=== PATIENT | female | born 1960 | race Caucasian/White ===

== ENCOUNTER → 2017-11-13 | Outpatient (CLI) | payer MEDICARE ==
[~2017-11-13] MED LIST: CLON1 PO; DICY1TAB26 PO; LORTA5 PO; LURA120T PO; METO10TA PO; NYST500KS SWISH-SPIT; PHEN12.5 PR; PROM25TA5 PO; PROT40TA PO; PROZ40CA PO; SERO200T PO; SUCR1S PO; ZOFR8TAB PO
--- NOTE | 2017-11-14 07:16 | EKG ---
Date Performed: 11/13/2017 Time Performed: 13:27:48 PTAGE: 57 years EKG: Sinus rhythm . Normal ECG PREVIOUS TRACING : 12/19/2015 03.03 DOCTOR: Rosa Isela Mckeon Interpretating Date/Time 11/14/2017 07:15:51
== END ==
LOC: HCAV 13:11
PROVIDERS: ATTEND Psychiatry & Neurology Psychiatry
DX: F31.30 Bipolar disorder, current episode depressed, mild or moderate severity, unspecified (principal)
CPT/HCPCS: 93005